=== PATIENT | female | born 1965 | race Caucasian/White ===

== ENCOUNTER 2017-12-25 22:49 | Emergency (ER) | payer BC ==
[2017-12-25 22:50] VITALS: Ht 162.6 cm
[2017-12-25 23:27] VITALS: BP 100/70
== END 2017-12-25 23:27 | disposition home or self-care (01) ==
LOC: ED 22:49
DX: J06.9 Acute upper respiratory infection, unspecified (principal)
CPT/HCPCS: J1100; J1885